=== PATIENT | female | born 1990 | race Caucasian/White ===

== ENCOUNTER 2018-06-22 15:32 | Inpatient (IN) | payer MEDICAID ==
[2018-06-22 16:28] LABS: ADD UMIC YES; UR ASCORBIC ACID 40 mg/dL (NEGATIVE); UR BACTERIA FEW /HPF (NONE SEEN); UR BILIRUBIN (Dip) NEGATIVE (NEGATIVE); UR BLOOD (Dip) NEGATIVE (NEGATIVE); UR CALCIUM OXALATE CRYSTAL MANY /HPF (NONE SEEN); UR CLARITY SLIGHTLY CLOUDY (CLEAR); UR COLOR YELLOW (YELLOW); UR GLUCOSE (Dip) 2+ mg/dL (NEGATIVE); UR KETONES (Dip) NEGATIVE (NEGATIVE); UR LEUKOCYTE ESTERASE (Dip) TRACE Leu/ul (NEGATIVE); UR MUCUS FEW /HPF (NONE SEEN); UR NITRITE (Dip) NEGATIVE (NEGATIVE); UR RBC 4 /HPF (0-5); UR SPECIFIC GRAVITY (Dip) 1.025 (1.003-1.030); UR SQUAMOUS EPITHELIAL CELL FEW /HPF (FEW); UR TOTAL PROTEIN (Dip) NEGATIVE (NEGATIVE); UR UROBILINOGEN (Dip) NEGATIVE (NEGATIVE); UR WBC 25 /HPF (0-5)
[2018-06-22 16:32] LABS: ADD MAN DIFF? NO
[2018-06-22 16:35] LABS: WHITE BLOOD COUNT 7.4 10^3/ul (4.8-10.8)
[2018-06-22 16:35] LABS: BASOPHILS % 0.3 % (0.0-2.0); EOSINOPHILS # 0.1 10^3/ul (0.0-0.5); EOSINOPHILS % 0.7 % (0.0-7.0); HEMATOCRIT 31.5 % (37.0-47.0); HEMOGLOBIN 10.8 g/dl (12.0-16.0); LYMPHOCYTES # 1.4 10^3/ul (0.8-2.9); LYMPHOCYTES % 18.3 % (15.0-51.0); MEAN CORPUSCULAR HEMOGLOBIN 30.7 pg (29.0-33.0); MEAN CORPUSCULAR HGB CONC 34.3 g/dl (32.0-37.0); MEAN CORPUSCULAR VOLUME 89.5 fl (82.0-101.0); MEAN PLATELET VOLUME 10.4 fl (7.4-10.4); MONOCYTE # 0.6 10^3/ul (0.3-0.9); MONOCYTES % 8.3 % (0.0-11.0); NEUTROPHIL # 5.3 10^3/ul (1.6-7.5); PLATELET COUNT 265 10^3/UL (140-415); RED BLOOD COUNT 3.52 10^6/ul (4.20-5.40); RED CELL DISTRIBUTION WIDTH 13.5 % (11.5-14.5)
[2018-06-22] MEDS: LACTATED RINGER'S 1,000 ML IV ×2 (17:51→22:38)
[2018-06-22] MEDS: CEFTRIAXONE 1 GM/50 ML (PMX) 50 ML IVPB (18:30)
[2018-06-22] MEDS: ACETAMINOPHEN 325 MG TAB PO (22:37)
[2018-06-23] MEDS: LACTATED RINGER'S 1,000 ML IV (06:42)
[2018-06-23] MEDS: SOD CHLORIDE 0.9% 1,000 ML IV ×2 (07:59→15:27)
[2018-06-23] MEDS: PRENATAL VITAMIN PO (09:00)
[2018-06-23] MEDS: CEFTRIAXONE 1 GM/50 ML (PMX) 50 ML IVPB (17:56)
[2018-06-24] MEDS: SOD CHLORIDE 0.9% 1,000 ML IV ×4 (01:57→17:51)
[2018-06-24] MEDS: PRENATAL VITAMIN PO (09:02)
[2018-06-24] MEDS: CEFTRIAXONE 1 GM/50 ML (PMX) 50 ML IVPB (17:51)
[2018-06-25] MEDS: SOD CHLORIDE 0.9% 1,000 ML IV ×2 (02:11→14:35)
[2018-06-25] MEDS: PRENATAL VITAMIN PO (08:26)
== END 2018-06-25 17:10 | disposition home or self-care (01) | DRG 781 ==
LOC: OBT 15:32 → PP1 06-23 09:26 → L-D 15:35 → OBT 17:05 → L-D 17:05
DX: O23.03 Infections of kidney in pregnancy, third trimester (principal); Z3A.31 31 weeks gestation of pregnancy
CPT/HCPCS: 76775; 76815; 76817; 81001; 82962; 85025; 87086

== ENCOUNTER 2018-08-12 20:54 | Outpatient (CLI) | payer MEDICAID ==
[2018-08-12 21:54] LABS: ADD UMIC YES; UR ASCORBIC ACID NEGATIVE (NEGATIVE); UR BACTERIA FEW /HPF (NONE SEEN); UR BILIRUBIN (Dip) NEGATIVE (NEGATIVE); UR BLOOD (Dip) 1+ mg/dL (NEGATIVE); UR CLARITY CLEAR (CLEAR); UR COLOR STRAW (YELLOW); UR GLUCOSE (Dip) NEGATIVE (NEGATIVE); UR KETONES (Dip) NEGATIVE (NEGATIVE); UR LEUKOCYTE ESTERASE (Dip) NEGATIVE Leu/ul (NEGATIVE); UR NITRITE (Dip) NEGATIVE (NEGATIVE); UR RBC 1 /HPF (0-5); UR SPECIFIC GRAVITY (Dip) 1.003 (1.003-1.030); UR SQUAMOUS EPITHELIAL CELL MODERATE /HPF (FEW); UR TOTAL PROTEIN (Dip) NEGATIVE (NEGATIVE); UR UROBILINOGEN (Dip) NEGATIVE (NEGATIVE); UR WBC 1 /HPF (0-5)
== END 2018-08-12 23:15 | disposition home or self-care (01) ==
LOC: OBT 20:54 → L-D 20:55 → OBT 23:15
DX: O62.9 Abnormality of forces of labor, unspecified (principal); Z3A.38 38 weeks gestation of pregnancy
CPT/HCPCS: 76818; 81001

== ENCOUNTER 2018-08-13 15:26 | Inpatient (IN) | payer MEDICAID ==
[2018-08-13] MEDS: LACTATED RINGER'S 1,000 ML IV ×2 (16:54→23:00)
[2018-08-13] MEDS ORDERED: OXYTOCIN 30 UNITS/LR 500 ML IV (17:00)
[2018-08-13] MEDS ORDERED: CARBOPROST 250 MCG INJ IM (17:00)
[2018-08-13] MEDS ORDERED: MISOPROSTOL 200 MCG TAB PR (17:00)
[2018-08-13] MEDS ORDERED: IBUPROFEN 600 MG TAB PO (17:00)
[2018-08-13] MEDS ORDERED: LIDOCAINE 1% (MPF) 30 ML INJ INJ (17:00)
[2018-08-13] MEDS ORDERED: METHYLERGONOVINE 0.2 MG INJ IM (17:00)
[2018-08-13 17:08] LABS: ADD MAN DIFF? NO
[2018-08-13 17:18] LABS: WHITE BLOOD COUNT 9.6 10^3/ul (4.8-10.8)
[2018-08-13 17:18] LABS: BASOPHILS % 0.3 % (0.0-2.0); EOSINOPHILS % 0.2 % (0.0-7.0); HEMATOCRIT 36.5 % (37.0-47.0); HEMOGLOBIN 12.1 g/dl (12.0-16.0); LYMPHOCYTES # 1.5 10^3/ul (0.8-2.9); LYMPHOCYTES % 16.1 % (15.0-51.0); MEAN CORPUSCULAR HGB CONC 33.2 g/dl (32.0-37.0); MEAN CORPUSCULAR VOLUME 90.3 fl (82.0-101.0); MEAN PLATELET VOLUME 11.6 fl (7.4-10.4); MONOCYTE # 0.6 10^3/ul (0.3-0.9); MONOCYTES % 5.9 % (0.0-11.0); NEUTROPHIL # 7.4 10^3/ul (1.6-7.5); PLATELET COUNT 261 10^3/UL (140-415); RED BLOOD COUNT 4.04 10^6/ul (4.20-5.40); RED CELL DISTRIBUTION WIDTH 13.6 % (11.5-14.5)
[2018-08-13 17:30] LABS: INR 0.85; PARTIAL THROMBOPLASTIN TIME 27.9 Sec (23.0-35.0); PROTIME 11.7 Sec (11.9-14.9); PT RATIO 0.9
[2018-08-13] MEDS ORDERED: LIDOCAINE 0.5% (SDV) 50 ML INJ INFIL (17:30)
[2018-08-13] MEDS: BUTORPHANOL 2 MG INJ IV ×2 (18:05→22:56)
[2018-08-13] MEDS ORDERED: LIDOCAINE 1% (MPF) 30 ML INJ (19:13)
[2018-08-14] MEDS: OXYTOCIN 30 UNITS/LR 500 ML IV ×3 (01:17→11:51)
[2018-08-14] MEDS ORDERED: ONDANSETRON 4 MG INJ IV (02:00)
[2018-08-14] MEDS ORDERED: ACETAMINOPHEN 325 MG TAB PO ×2 (02:00)
[2018-08-14] MEDS ORDERED: SENNA/DOCUSATE NA (8.6MG/50MG) TAB PO (02:00)
[2018-08-14] MEDS ORDERED: CARBOPROST 250 MCG INJ IM (02:00)
[2018-08-14] MEDS ORDERED: WITCH HAZEL/GLYCERIN PAD PR (02:00)
[2018-08-14] MEDS ORDERED: MISOPROSTOL 200 MCG TAB PR (02:00)
[2018-08-14] MEDS ORDERED: METHYLERGONOVINE 0.2 MG INJ IM (02:00)
[2018-08-14] MEDS ORDERED: OXYTOCIN 30 UNITS/LR 500 ML IV (02:00)
[2018-08-14] MEDS ORDERED: BENZOCAINE 20% 56 ML SPRAY TOP (02:00)
[2018-08-14] MEDS: LACTATED RINGER'S 1,000 ML IV* ×3 (03:00→21:06)
[2018-08-14] MEDS: IBUPROFEN 600 MG TAB PO ×2 (11:47→18:35)
[2018-08-14 18:14] LABS: RAPID PLASMA REAGIN NONREACTIVE (NR)
[2018-08-15] MEDS: LACTATED RINGER'S 1,000 ML IV* ×2 (01:35→09:35)
[2018-08-15 08:37] LABS: ADD MAN DIFF? NO
[2018-08-15 08:41] LABS: WHITE BLOOD COUNT 9.3 10^3/ul (4.8-10.8)
[2018-08-15 08:41] LABS: BASOPHIL # 0.1 10^3/ul (0.0-0.1); BASOPHILS % 0.5 % (0.0-2.0); EOSINOPHILS # 0.2 10^3/ul (0.0-0.5); HEMATOCRIT 31.6 % (37.0-47.0); HEMOGLOBIN 10.5 g/dl (12.0-16.0); LYMPHOCYTES # 2.6 10^3/ul (0.8-2.9); LYMPHOCYTES % 28.1 % (15.0-51.0); MEAN CORPUSCULAR HEMOGLOBIN 30.1 pg (29.0-33.0); MEAN CORPUSCULAR HGB CONC 33.2 g/dl (32.0-37.0); MEAN CORPUSCULAR VOLUME 90.5 fl (82.0-101.0); MEAN PLATELET VOLUME 11.8 fl (7.4-10.4); MONOCYTE # 0.7 10^3/ul (0.3-0.9); NEUTROPHIL # 5.8 10^3/ul (1.6-7.5); PLATELET COUNT 194 10^3/UL (140-415); RED BLOOD COUNT 3.49 10^6/ul (4.20-5.40); RED CELL DISTRIBUTION WIDTH 13.9 % (11.5-14.5)
[2018-08-15] MEDS: IBUPROFEN 600 MG TAB PO (11:16)
[2018-08-16] MEDS: IBUPROFEN 600 MG TAB PO ×2 (04:12→12:19)
[2018-08-16] MEDS: LANOLIN 7 GM TUBE TOP (04:15)
[2018-08-16] MEDS: MAGNESIUM HYDROXIDE 30ML CUP PO (09:55)
== END 2018-08-16 17:45 | disposition home or self-care (01) | DRG 807 ==
LOC: PP1 08-14 02:50 → OBT 15:26 → L-D 15:27 → OBT 16:18 → L-D 16:19
PROVIDERS: Obstetrics & Gynecology
PROC: 10E0XZZ Delivery of Products of Conception, External Approach (ICD-10-PCS; principal; 2018-08-14)
DX: O80 Encounter for full-term uncomplicated delivery (principal); Z37.0 Single live birth; Z3A.38 38 weeks gestation of pregnancy
CPT/HCPCS: 85025; 85610; 85730; 86592; 86850; 86900; 86901